=== PATIENT | male | born 1995 | race Caucasian/White ===

== ENCOUNTER 2016-11-06 11:02 | Emergency (ER) | payer BC ==
[~2016-11-06] VITALS: Ht 190.5 cm; Wt 76.6 kg
[2016-11-06 11:07] VITALS: TEMP 36.8; Ht 190.5 cm; Wt 76.6 kg
[2016-11-06] MEDS ORDERED: SODIUM CHLORIDE 0.9% 1000ML 2,000 ML IV STA (12:10)
[2016-11-06] MEDS ORDERED: ONDANSETRON INJ 2 MG/ML 2 ML VIAL IV STA (12:10)
[2016-11-06 12:34] LABS: BASO % 0.5 %; BASO ABS # 0.03 K/uL (0-0.2); COMPLETE YES; EOS % 0.8 %; HEMATOCRIT 43.9 % (42-52); LYMPH ABS # 1.69 K/uL (1.2-3.4); MEAN CORPUSCULAR HEMOGLOBIN 30.9 pg (25-34); MEAN CORPUSCULAR HGB CONC 35.1 g/dl (32-36); MEAN PLATELET VOLUME 10.2 fL (7.4-10.4); MONO % 8.2 %; NEUT % 63.5 %; PLATELET COUNT 300 K/uL (130-400); RED BLOOD COUNT 4.99 M/uL (4.7-6.1); WHITE BLOOD COUNT 6.25 K/uL (4.8-10.8)
--- NOTE | 2016-11-06 12:53 | DIAGNOSTIC IMAGING REPORT ---
HEAD CT NONCONTRAST CT DOSE: 537.48 mGy.cm HISTORY: Headache w/ vomiting and blurry vision out of left eye TECHNIQUE: Multiaxial CT images of the head were performed without the use of intravenous contrast. Automated exposure control was utilized for this study. Comparison: Head CT 11/21/2011. Findings: The paranasal sinuses and mastoid air cells are clear. The calvarium and skull base are intact. The ventricles and sulci are within normal limits. There is no mass, hematoma, midline shift, or acute infarct. Impression: No acute intracranial abnormality. Electronically signed by: Shady Holbrook M.D. 11/06/2016 12:52 PM Dictated Date/Time: 11/06/2016 12:47 PM
[2016-11-06 12:57] LABS: BUN/CREATININE RATIO 15.6 (10-20); CALCIUM 9.6 mg/dl (8.5-10.1); CREATININE 0.87 mg/dl (0.60-1.40); POTASSIUM 3.9 mmol/L (3.5-5.1)
[2016-11-06 14:35] VITALS: BP 120/86; PULSE 65; O2SAT 100
--- NOTE | 2016-11-06 18:28 | EMERGENCY ROOM VISIT NOTE ---
History Report prepared by Todd: Lori Perez Under the Supervision of: Dr. Daryl Waddell D.O. First contact with patient: 11:57 Chief Complaint: HEADACHE Stated Complaint: HEADACHE,BLURRY VISION,VOMITING History of Present Illness The patient is a 21 year old male who presents to the Emergency Room with complaints of a resolved headache which occurred at 0900 yesterday morning. He was at work, delivering furniture, when he began to experience pain across his forehead and down below his left eye. The pain started gradually. He also began to lose vision in his left eye. He reports just seeing a cloud of white. He returned home and around 1000 began vomiting after he attempted to eat some food. He recounts that he vomited many times. He recalls feeling numb in the fingers of his left hand and weak in both his legs. The headache resolved after 45 minutes. There is a history of migraines both in himself and in his mother and he describes his headache yesterday as a migraine. When he experiences headaches, the pain is usually present in the back of his head, but the pain yesterday was different from his normal headaches. He reports that it is the first time in a while he has experienced a migraine. When he was younger, he used to have episodes of tunnel vision, which were described by the doctor as migraines without the headache. He has not followed with a neurologist for the migraines. He denies any cough, rhinorrhea, abdominal pain, sore throat, fever, ear ache, congestion, or vomiting today. He denies any changes in bowel movements. He has had many concussions before, but denies any recent trauma. He denies any history of clots. Source of History: patient Onset: yesterday 0900 Position: head Quality: ache Timing: resolved Associated Symptoms: + numbness (left hand), + vomiting, + weakness (in legs ), No abdominal pain, No fevers, No sorethroat Note: Pt denies rhinorrhea, ear ache, changes in bowel movements. Review of Systems See HPI for pertinent positives & negatives. A total of 10 systems reviewed and were otherwise negative. Past Medical & Surgical Medical Problems: (1) Concussion Family History FH: migraine headache Social History Smoking Status: Current Every Day Smoker Drug Use: none Housing Status: lives with family Occupation Status: student Current/Historical Medications No Active Prescriptions or Reported Meds Allergies Coded Allergies: No Known Allergies (Unverified , 11/06/16) Physical Exam Vital Signs Date Time Temp Pulse Resp B/P Pulse Ox O2 Delivery O2 Flow Rate FiO2 11/06/16 14:35 65 20 120/86 100 Room Air 11/06/16 12:54 55 20 109/65 99 Room Air 11/06/16 11:07 36.8 67 18 114/80 98 Room Air Physical Exam GENERAL: sitting up in bed, alert, well appearing, well nourished, no distress, non-toxic EYE EXAM: normal conjunctiva, PERRL and EOM's intact EARS: TMs clear bilaterally. OROPHARYNX: no exudate, no erythema, lips, buccal mucosa, and tongue normal and mucous membranes are moist NECK: supple, no nuchal rigidity, no adenopathy, non-tender LUNGS: Clear to auscultation. Normal chest wall mechanics HEART: no murmurs, S1 normal and S2 normal ABDOMEN: abdomen soft, non-tender, normo-active bowel sounds, no masses, no rebound or guarding. BACK: Back is symmetrical on inspection and there is no deformity, no midline tenderness, no CVA tenderness. SKIN: no rashes and no bruising UPPER EXTREMITIES: upper extremities are grossly normal. LOWER EXTREMITIES: No pitting edema. NEURO EXAM: Normal sensorium, cranial nerves II-XII intact, normal speech, no weakness of arms, no weakness of legs. No drift. Finger to nose intact. Gross sensation intact. Rapid alternating movement of the extremities intact. Medical Decision & Procedures ER Provider Diagnostic Interpretation: Radiology results have been interpreted by the radiologist and reviewed by me. HEAD CT NONCONTRAST CT DOSE: 537.48 mGy.cm HISTORY: Headache w/ vomiting and blurry vision out of left eye TECHNIQUE: Multiaxial CT images of the head were performed without the use of intravenous contrast. Automated exposure control was utilized for this study. Comparison: Head CT 11/21/2011. Findings: The paranasal sinuses and mastoid air cells are clear. The calvarium and skull base are intact. The ventricles and sulci are within normal limits. There is no mass, hematoma, midline shift, or acute infarct. Impression: No acute intracranial abnormality. Electronically signed by: Shady Holbrook M.D. 11/06/2016 12:52 PM Dictated Date/Time: 11/06/2016 12:47 PM Laboratory Results 11/06/16 12:21 Red Blood Count 4.99, Mean Corpuscular Volume 88.0, Mean Corpuscular Hemoglobin 30.9, Mean Corpuscular Hemoglobin Concent 35.1, Mean Platelet Volume 10.2, Neutrophils (%) (Auto) 63.5, Lymphocytes (%) (Auto) 27.0, Monocytes (%) (Auto) 8.2, Eosinophils (%) (Auto) 0.8, Basophils (%) (Auto) 0.5, Neutrophils # (Auto) 3.97, Lymphocytes # (Auto) 1.69, Monocytes # (Auto) 0.51, Eosinophils # (Auto) 0.05, Basophils # (Auto) 0.03 11/06/16 12:21 Test 11/06/16 12:21 White Blood Count 6.25 K/uL (4.8-10.8) Red Blood Count 4.99 M/uL (4.7-6.1) Hemoglobin 15.4 g/dL (14.0-18.0) Hematocrit 43.9 % (42-52) Mean Corpuscular Volume 88.0 fL (80-100) Mean Corpuscular Hemoglobin 30.9 pg (25-34) Mean Corpuscular Hemoglobin Concent 35.1 g/dl (32-36) Platelet Count 300 K/uL (130-400) Mean Platelet Volume 10.2 fL (7.4-10.4) Neutrophils (%) (Auto) 63.5 % Lymphocytes (%) (Auto) 27.0 % Monocytes (%) (Auto) 8.2 % Eosinophils (%) (Auto) 0.8 % Basophils (%) (Auto) 0.5 % Neutrophils # (Auto) 3.97 K/uL (1.4-6.5) Lymphocytes # (Auto) 1.69 K/uL (1.2-3.4) Monocytes # (Auto) 0.51 K/uL (0.11-0.59) Eosinophils # (Auto) 0.05 K/uL (0-0.5) Basophils # (Auto) 0.03 K/uL (0-0.2) RDW Standard Deviation 39.9 fL (36.4-46.3) RDW Coefficient of Variation 12.5 % (11.5-14.5) Immature Granulocyte % (Auto) 0.0 % Immature Granulocyte # (Auto) 0.00 K/uL (0.00-0.02) Anion Gap 8.0 mmol/L (3-11) Est Creatinine Clear Calc Drug Dose 144.3 ml/min Estimated GFR () 142.0 Estimated GFR (Non- 122.5 BUN/Creatinine Ratio 15.6 (10-20) Lactic Acid Level 1.3 mmol/L (0.4-2.0) Calcium Level 9.6 mg/dl (8.5-10.1) Total Bilirubin 0.6 mg/dl (0.2-1) Direct Bilirubin 0.1 mg/dl (0-0.2) Aspartate Amino Transf (AST/SGOT) 10 U/L (15-37) Alanine Aminotransferase (ALT/SGPT) 19 U/L (12-78) Alkaline Phosphatase 92 U/L (45-117) Total Protein 7.5 gm/dl (6.4-8.2) Albumin 4.2 gm/dl (3.4-5.0) Lipase 91 U/L (73-393) Laboratory results per my review. Medications Administered Medications (Trade) Dose Ordered Sig/Brandon Route Start Time Stop Time Status Last Admin Dose Admin Sodium Chloride (Nss 1000ml) 2,000 ml @ 999 mls/hr Q2H1M STAT IV 11/06/16 12:10 11/06/16 14:10 DC 11/06/16 12:54 999 MLS/HR Ondansetron HCl (Zofran Inj) 4 mg NOW STAT IV 11/06/16 12:10 11/06/16 12:11 DC 11/06/16 12:53 4 MG ED Course ED COURSE: Vital signs were reviewed and showed normal vitals. The patients medical record was reviewed The above diagnostic studies were performed and reviewed. ED treatments and interventions as stated above. 1200: The patient was evaluated in room C12. A complete history and physical examination was performed. 1210: NSS 2000 ml @ 999 mls/hr IV, Zofran Inj 4 mg IV. 1310: I discussed the patient's case with Dr. Murillo, [facility] [place]y. He suggests that an MRI be done. 1314: I reevaluated the patient. He feels fine. I updated him on the results. 1420: Upon reevaluation, the patient is feeling fine. He would not like the MRI. I discussed all the risks and benefits of his decision. I discussed my findings with the patient and he understands and agrees with the treatment plan. Based on the patients age, coexisting illnesses, exam and lab findings the decision to treat as an outpatient was made. The patient remained stable while under my care. The patient appeared well at the time of discharge. Medical Decision Differential Diagnosis includes but is not limited to headache, tension headache , cluster headache, migraine, subarachnoid hemorrhage, meningitis, mass, central venous thrombus, concussion, trauma and epidural/subdural hemorrhage. Patient is a 21-year-old male who presents the ER for a resolved headache associated with blurry vision out of his left eye which started yesterday resolved. The headache came on gradually and progressively worsened. He denies any fevers. There is no signs of meningitis or encephalitis on exam. Nothing in his history to suggest a subarachnoid hemorrhage or bleed. No recent trauma. CT of his head was unremarkable. His neurologic exam is completely intact. Blood work was unremarkable. Discussed this case with neurology and they agreed that MRI with and without should be performed. This imaging was ordered and the patient was updated. Prior to the patient going down he refused any imaging. I explained the risk and benefits of this. Following informed refusal of care with his parents at bedside he declined the MRI and notes that he will follow-up as an outpatient with his primary care doctor. Although I do feel that his symptoms are most consistent with a migraine variant I did feel is prudent to rule out any demyelinating disease versus stroke however following informed refusal of care he was discharged follow-up with his primary care doctor at his baseline. Discussed with Pt concerning signs and symptoms to watch out for. Pt was instructed to follow up with their PCP and discussed with the patient their option to return to the ED at anytime for persistent or worsening symptoms. The appropriate anticipatory guidance and out-patient management, including indications for return to the emergency department, were explained at length to the patient and understood. Consults Time Called: 1305 Consulting Physician: Dr. Murillo [facility] [place] - neurology Returned Call: [phone] I discussed the patient's case with him. He suggests that an MRI be done. Impression Primary Impression: Headache Scribe Attestation The scribe's documentation has been prepared under my direction and personally reviewed by me in its entirety. I confirm that the note above accurately reflects all work, treatment, procedures, and medical decision making performed by me. Departure Information Dispostion Home / Self-Care Prescriptions No Active Prescriptions or Reported Meds Referrals Pilo Fletcher M.D. (PCP) Forms HOME CARE DOCUMENTATION FORM, IMPORTANT VISIT INFORMATION Patient Instructions Headache Pain, My [facility] Additional Instructions Please follow up with your primary care doctor with in the next 24 hours. Any worsening of your symptoms, please return to the ED immediately. This includes change in vision, worsening vision, change in headache/recurrence of the headache, weakness in the arms or legs, confusion, fevers greater than 100.4, or any other concerning signs or symptoms from your stand point. Please make sure that he follow up with your primary care doctor as directed above. Any recurrence of your symptoms you will need to return immediately to the ER to obtain an MRI. Problem Qualifiers Primary Impression: Headache Headache type: unspecified Headache chronicity pattern: unspecified pattern Intractability: not intractable Qualified Codes: R51 - Headache
== END 2016-11-06 15:00 | disposition home or self-care (01) ==
LOC: C.EDB 11:05 → C.EDC 15:00
DX: R51 Headache (principal); F17.210 Nicotine dependence, cigarettes, uncomplicated